=== PATIENT | male | born 1975 | race Caucasian/White ===

== ENCOUNTER 2018-11-24 12:12 | Observation (INO) | payer BC ==
[~2018-11-24 12:12] MED LIST: Lidocaine 1%/Sod Bicarbonate in NS 8.4% 1 ML Syringe IDERM PRN; Sodium Chloride 0.9% 10 ML Syringe FLUSH PRN
[2018-11-24] MEDS ORDERED: Tamsulosin 0.4 MG Cap.ER PO SCH (12:15)
[2018-11-24] MEDS ORDERED: cefOXitin 1 GM in Premix Bag 1 BAG IV SCH ×2 (12:15→15:00)
[2018-11-24] MEDS ORDERED: metroNIDAZOLE/Normal Saline 500 MG in Premix Bag 1 BAG IV SCH (12:15)
[2018-11-24] MEDS ORDERED: Bupivacaine 0.5% 30 ML SDV ONE (12:28)
[2018-11-24] MEDS ORDERED: Lidocaine 1% 6 ML ONE (12:31)
[2018-11-24] MEDS ORDERED: HYDROmorphone 0.5 MG/0.5 ML Syringe ONE (12:31)
[2018-11-24] MEDS ORDERED: Propofol 200 MG/20 ML SDV ONE ×2 (12:31→13:15)
[2018-11-24] MEDS ORDERED: Lactated Ringers 1,000 ML ONE (12:31)
[2018-11-24] MEDS ORDERED: Dexamethasone 4 MG/ML 5 ML MDV ONE (12:31)
[2018-11-24] MEDS ORDERED: Ondansetron 4 MG/2 ML SDV ONE (12:31)
[2018-11-24] MEDS ORDERED: Ketorolac 30 MG/ML SDV ONE (12:31)
[2018-11-24] MEDS ORDERED: Rocuronium 50 MG/5 ML Vial ONE (12:31)
[2018-11-24] MEDS ORDERED: Midazolam 1 MG/ML 2 ML SDV ONE (12:32)
[2018-11-24] MEDS ORDERED: fentaNYL 250 MCG/5 ML SDV ONE (12:32)
[2018-11-24] MEDS: Lactated Ringers 1,000 ML IV SCH ×2 (12:35→22:21)
--- NOTE | 2018-11-24 12:45 | PCM.PREANE ---
Preanesthetic Assessment - Anesthesia/Transfusion/Family Hx Anesthesia History: Prior Anesthesia Without Reaction Transfusion History: No Prior Transfusion(s) Intubation History: Unknown - Review of Systems General: No Symptoms, Fatigue, Malaise Pulmonary: No Symptoms (ETOH: occasionally) Cardiovascular: No Symptoms, Palpitations (many years ago) Gastrointestinal: Difficulty Swallowing Neurological: No Symptoms Other: Reports: Sinus Problem (seasonal allergies/septoplasty surgery in the past), Anxiety - Physical Assessment NPO Status Date: 11/24/18 NPO Status Time: 05:00 Vital Signs: HR: 83 BP:133/84 TEMP:98.1F RESP:16 SAT:98% Height: 1.88 m Weight: 93.44 kg ASA Class: 2E Mental Status: Alert & Oriented x3 Airway Class: Mallampati = 2 Dentition: Reports: Normal Dentition, Caries Thyro-Mental Finger Breadths: 3 Mouth Opening Finger Breadths: 3 ROM/Head Extension: Full Lungs: Clear to Auscultation, Normal Respiratory Effort Cardiovascular: Regular Rate, Regular Rhythm, No Murmurs - Lab Values: All labs reviewed and noted and within acceptable ranges to proceed with scheduled procedure. - Allergies Allergies/Adverse Reactions: Allergies Allergy/AdvReac Type Severity Reaction Status Date / Time No Known Allergies Allergy Verified 11/24/18 12:19 - Anesthesia Plan Pre-Op Medication Ordered: None - Acknowledgements Anesthesia Type Planned: General Anesthesia Pt an Appropriate Candidate for the Planned Anesthesia: Yes Alternatives and Risks of Anesthesia Discussed w Pt/Guardian: Yes Pt/Guardian Understands and Agrees with Anesthesia Plan: Yes PreAnesthesia Questionnaire - CURRENT (IN HOUSE) MEDS Current Meds: Current Medications Lactated Ringer's (Ringers, Lactated) 1,000 mls @ 125 mls/hr IV ASDIRECTED AARON Last Admin: 11/24/18 12:35 Dose: 125 mls/hr Cefoxitin Sodium 1 gm/ Premix 50 mls @ 100 mls/hr IV ONETIME AARON Metronidazole 500 mg/ Premix 100 mls @ 100 mls/hr IV ONETIME AARON Last Admin: 11/24/18 12:37 Dose: 100 mls/hr Lidocaine/Sodium Bicarbonate (Buffered Lidocaine 1% In Ns 8.4%) 0.25 ml IDERM ONETIME PRN PRN Reason: Prior to IV Start Last Admin: 11/24/18 12:35 Dose: 0.25 ml Sodium Chloride (Saline Flush) 10 ml FLUSH ASDIRECTED PRN PRN Reason: Keep Vein Open Tamsulosin HCl (Flomax) 0.4 mg PO ONETIME AARON Last Admin: 11/24/18 12:37 Dose: 0.4 mg Discontinued Medications Bupivacaine HCl (Marcaine 0.5%) Confirm Administered Dose 30 ml .ROUTE .STK-MED ONE Stop: 11/24/18 12:29 Dexamethasone (Dexamethasone) Confirm Administered Dose 20 mg .ROUTE .STK-MED ONE Stop: 11/24/18 12:32 Fentanyl (Sublimaze) Confirm Administered Dose 250 mcg .ROUTE .STK-MED ONE Stop: 11/24/18 12:33 Hydromorphone HCl (Dilaudid) Confirm Administered Dose 0.5 mg .ROUTE .STK-MED ONE Stop: 11/24/18 12:32 Lidocaine HCl (Xylocaine-Mpf 1%) Confirm Administered Dose 6 mls @ as directed .ROUTE .ST-MED ONE Stop: 11/24/18 12:32 Cefoxitin Sodium (Mefoxin In Dextrose,Iso-Osm 2 Gm/50 Ml) Confirm Administered Dose 50 mls @ as directed .ROUTE .ST-MED ONE Stop: 11/24/18 12:32 Lactated Ringer's (Ringers, Lactated) Confirm Administered Dose 1,000 mls @ as directed .ROUTE .ST-MED ONE Stop: 11/24/18 12:32 Ketorolac Tromethamine (Toradol) Confirm Administered Dose 30 mg .ROUTE .ST- MED ONE Stop: 11/24/18 12:32 Midazolam HCl (Versed 1 Mg/Ml) Confirm Administered Dose 2 mg .ROUTE .ST-MED ONE Stop: 11/24/18 12:33 Ondansetron HCl (Zofran) Confirm Administered Dose 4 mg .ROUTE .STK-MED ONE Stop: 11/24/18 12:32 Propofol (Diprivan 20 Ml) Confirm Administered Dose 200 mg .ROUTE .STK-MED ONE Stop: 11/24/18 12:32 Rocuronium [place] (Zemuron) Confirm Administered Dose 50 mg .ROUTE .STK-MED ONE Stop: 11/24/18 12:32
[2018-11-24] MEDS ORDERED: diphenhydrAMINE 50 MG/ML SDV IVPUSH PRN (13:55)
[2018-11-24] MEDS ORDERED: Ondansetron 4 MG/2 ML SDV IVPUSH PRN ×2 (13:55→14:47)
[2018-11-24] MEDS ORDERED: HYDROmorphone 0.5 MG/0.5 ML Syringe IVPUSH PRN ×2 (13:55→17:04)
--- NOTE | 2018-11-24 14:44 | PCM.OPNOTE ---
- General Post-Op/Procedure Note Date of Surgery/Procedure: 11/24/18 Operative Procedure(s): lap appy Pre Op Diagnosis: acute appendicitis Post-Op Diagnosis: Same Anesthesia Technique: MAC Primary Surgeon: Eduard Beltrán EBL in mLs: 20 Complications: None Condition: Good
[2018-11-24] MEDS ORDERED: Tamsulosin 0.4 MG Cap.ER PO ONE (14:48)
--- NOTE | 2018-11-24 14:57 | PCM.POSTAN ---
POST ANESTHESIA ASSESSMENT - MENTAL STATUS Mental Status: Alert, Oriented - VITAL SIGNS Vital Signs: Last Vital Signs 1447 143/81 82 17 93% 97.9F - RESPIRATORY Respiratory Status: Respiratory Rate WNL, Airway Patent, O2 Saturation Stable, Supplemental Oxygen - CARDIOVASCULAR CV Status: Pulse Rate WNL, Blood Pressure Stable - GASTROINTESTINAL GI Status: No Symptoms - PAIN Pain Score: 0 - POST OP HYDRATION Hydration Status: Adequate & Stable
[2018-11-24] MEDS ORDERED: Lactated Ringers 1,000 ML IV SCH (15:00)
[2018-11-24] MEDS: fentaNYL 100 MCG/2 ML SDV IVPUSH PRN ×2 (15:01→15:21)
--- NOTE | 2018-11-24 15:17 | PCM48HPAN ---
Post Anesthesia Note - EVALUATION WITHIN 48HRS OF ANESTHETIC Vital Signs in Normal Range: Yes Patient Participated in Evaluation: Yes Respiratory Function Stable: Yes Airway Patent: Yes Cardiovascular Function Stable: Yes Hydration Status Stable: Yes Pain Control Satisfactory: Yes Nausea and Vomiting Control Satisfactory: Yes Mental Status Recovered: Yes Vital Signs: Last Vital Signs Temp 36.6 C 11/24/18 14:47 Pulse 83 11/24/18 12:25 Resp 12 11/24/18 15:15 BP 119/74 11/24/18 15:15 Pulse Ox 96 11/24/18 15:15
[2018-11-24] MEDS ORDERED: Meperidine 50 MG/ML Vial IVPUSH ONE (17:17)
[2018-11-24] MEDS: Acetaminophen/HYDROcodone 325-5 MG Tab PO PRN (20:58)
[2018-11-24] MEDS: cefOXitin 1 GM in Premix Bag 1 BAG IV SCH (20:58)
[2018-11-25] MEDS: cefOXitin 1 GM in Premix Bag 1 BAG IV SCH (04:18)
[2018-11-25] MEDS: Acetaminophen/HYDROcodone 325-5 MG Tab PO PRN ×2 (04:19→09:02)
[2018-11-25] MEDS: Lactated Ringers 1,000 ML IV SCH (06:14)
--- NOTE | 2018-11-25 07:52 | OR ---
DATE OF OPERATION: 11/24/2018 SURGEON: Eduard Beltrán MD PREOPERATIVE DIAGNOSIS: Acute appendicitis. POSTOPERATIVE DIAGNOSIS: Acute appendicitis. OPERATION PERFORMED: Laparoscopic appendectomy done under general anesthetic. There was 20 mL of blood loss and findings were acutely inflamed. Tip of the appendix in the retrocecal position. ANESTHESIA: Done under general anesthetic. DESCRIPTION OF PROCEDURE: The patient taken to the operating room, placed in a supine position, connected to monitoring equipment, given a general anesthetic, and intubated. Antibiotics and SCDs were given, and the abdomen was then clipped and prepped with chlorhexidine, alcohol prepped and draped off in a sterile fashion. An incision was made just below the umbilicus and carried down by sharp dissection to the fascia. This was incised, tented up, abdominal cavity entered. Uzma trocar placed and secured with stay sutures. 30 degree 5 mm camera was then inserted. Abdominal cavity scan showing appendix in the retrocecal position. He was placed in reverse Trendelenburg with leftward tilt and a 5 mm trocar placed in right upper quadrant and 1 in right lower quadrant. At the base of the cecum, a window was made in the mesoappendix. An Ethicon Endo-ligator placed in the appendix, from its attachment to the cecum. The appendix was then tented up and slowly dissected out. The mesoappendix was secured with hemoclips and another application of Endo-ligator until the cecum. Tail of the tip of the appendix was reached and this was dissected away from the surrounding inflammatory tissue and released and put in an endobag and brought out of the abdominal cavity. Camera was reinserted. The area was irrigated. Excellent hemostasis noted and checked and time was spent watching for any accumulation, none was noted. The subhepatic space and subdiaphragmatic space on the right were then irrigated free of any clots or debris. This completed the intraabdominal portion. The stump was quite secure and it was checked on leaving. Pneumoperitoneum was removed. The ports were removed and the fascia closed with 0 Vicryl suture and skin closed with subdermal 4-0 Dexon suture in a running fashion and the subumbilical incision and the port incisions were closed with interrupted subdermal 4-0 Dexon suture. Steri-Strips and sterile dressing placed, and each port was anesthetized with Marcaine. The patient with small dressing. The patient tolerated the procedure and sent to recovery room in a stable condition. Specimen sent to pathology in a labeled container. ESTIMATED BLOOD LOSS: MMODAL /[id number]
--- NOTE | 2018-11-25 09:00 | PCM.SURGPN ---
- General Info Date of Service: 11/25/18 - Patient Data Vitals - Most Recent: Last Vital Signs Temp 98.8 F 11/25/18 04:25 Pulse 87 11/25/18 04:25 Resp 16 11/25/18 04:25 BP 115/65 11/25/18 04:25 Pulse Ox 93 L 11/25/18 04:25 Weight - Most Recent: 95.527 kg I&O - Last 24 Hours: Intake & Output 11/24/18 11/25/18 11/25/18 23:59 07:59 15:59 Intake Total 320 1925 Output Total 500 Balance 320 1425 Lab Results Last 24 Hrs: Laboratory Results - last 24 hr 11/25/18 11/25/18 Range/Units 04:40 04:40 WBC 13.17 H (4.23-9.07) K/mm3 RBC 4.51 L (4.63-6.08) M/mm3 Hgb 13.0 L (13.7-17.5) gm/dl Hct 38.9 L (40.1-51.0) % MCV 86.3 (79.0-92.2) fl MCH 28.8 (25.7-32.2) pg MCHC 33.4 (32.2-35.5) g/dl RDW Std Deviation 39.7 (35.1-43.9) fL Plt Count 241 (163-337) K/mm3 MPV 8.8 L (9.4-12.3) fl Neut % (Auto) 80.2 H (34.0-67.9) % Lymph % (Auto) 10.3 L (21.8-53.1) % [place] % (Auto) 9.2 (5.3-12.2) % Eos % (Auto) 0 L (0.8-7.0) Baso % (Auto) 0.1 (0.1-1.2) % Neut # (Auto) 10.58 H (1.78-5.38) K/mm3 Lymph # (Auto) 1.35 (1.32-3.57) K/mm3 [place] # (Auto) 1.21 H (0.30-0.82) K/mm3 Eos # (Auto) 0.00 L (0.04-0.54) K/mm3 Baso # (Auto) 0.01 (0.01-0.08) K/mm3 Sodium 139 (136-145) mEq/L Potassium 3.8 (3.5-5.1) mEq/L Chloride 106 (98-107) mEq/L Carbon Dioxide 28 (21-32) mEq/L Anion Gap 8.8 (5-15) BUN 11 (7-18) mg/dL Creatinine 1.2 (0.7-1.3) mg/dL Est Cr Clr Drug Dosing 92.28 mL/min Estimated GFR (MDRD) > 60 (>60) mL/min BUN/Creatinine Ratio 9.2 L (14-18) Glucose 124 H (74-106) mg/dL Calcium 8.7 (8.5-10.1) mg/dL Total Bilirubin 0.8 (0.2-1.0) mg/dL AST 12 L (15-37) U/L ALT 16 (16-63) U/L Alkaline Phosphatase 56 (46-116) U/L Total Protein 6.2 L (6.4-8.2) g/dl Albumin 3.3 L (3.4-5.0) g/dl Globulin 2.9 gm/dL Albumin/Globulin Ratio 1.1 (1-2) Med Orders - Current: Current Medications Hydrocodone Bitart/Acetaminophen (Glidden 325-5 Mg) 1 tab PO Q4H PRN PRN Reason: Pain Last Admin: 11/25/18 04:19 Dose: 1 tab Hydromorphone HCl (Dilaudid) 0.5 mg IVPUSH Q6H PRN PRN Reason: Pain Last Admin: 11/24/18 17:29 Dose: 0.5 mg Lactated Ringer's (Ringers, Lactated) 1,000 mls @ 125 mls/hr IV ASDIRECTED AARON Last Admin: 11/25/18 06:14 Dose: 125 mls/hr Cefoxitin Sodium 1 gm/ Premix 50 mls @ 100 mls/hr IV ONETIME AARON Metronidazole 500 mg/ Premix 100 mls @ 100 mls/hr IV ONETIME AARON Last Admin: 11/24/18 12:37 Dose: 100 mls/hr Lactated Ringer's (Ringers, Lactated) 1,000 mls @ 125 mls/hr IV ASDIRECTED AARON Cefoxitin Sodium 1 gm/ Premix 50 mls @ 100 mls/hr IV Q8H AARON Last Admin: 11/25/18 04:18 Dose: 100 mls/hr Lidocaine/Sodium Bicarbonate (Buffered Lidocaine 1% In Ns 8.4%) 0.25 ml IDERM ONETIME PRN PRN Reason: Prior to IV Start Last Admin: 11/24/18 12:35 Dose: 0.25 ml Ondansetron HCl (Zofran) 4 mg IVPUSH Q8H PRN PRN Reason: Nausea Sodium Chloride (Saline Flush) 10 ml FLUSH ASDIRECTED PRN PRN Reason: Keep Vein Open Tamsulosin HCl (Flomax) 0.4 mg PO ONETIME AARON Last Admin: 11/24/18 12:37 Dose: 0.4 mg Discontinued Medications Bupivacaine HCl (Marcaine 0.5%) Confirm Administered Dose 30 ml .ROUTE .STK-MED ONE Stop: 11/24/18 12:29 Last Admin: 11/24/18 13:33 Dose: 15 ml Dexamethasone (Dexamethasone) Confirm Administered Dose 20 mg .ROUTE .STK-MED ONE Stop: 11/24/18 12:32 Diphenhydramine HCl (Benadryl) 25 mg IVPUSH Q6H PRN PRN Reason: Pruritis Stop: 11/24/18 18:00 Fentanyl (Sublimaze) Confirm Administered Dose 250 mcg .ROUTE .STK-MED ONE Stop: 11/24/18 12:33 Fentanyl (Sublimaze) 50 mcg IVPUSH Q5M PRN PRN Reason: Pain Stop: 11/24/18 18:00 Last Admin: 11/24/18 15:21 Dose: 50 mcg Hydromorphone HCl (Dilaudid) Confirm Administered Dose 0.5 mg .ROUTE .STK-MED ONE Stop: 11/24/18 12:32 Hydromorphone HCl (Dilaudid) 0.5 mg IVPUSH Q15M PRN PRN Reason: severe pain Stop: 11/24/18 18:00 Lidocaine HCl (Xylocaine-Mpf 1%) Confirm Administered Dose 6 mls @ as directed .ROUTE .STK-MED ONE Stop: 11/24/18 12:32 Cefoxitin Sodium (Mefoxin In Dextrose,Iso-Osm 2 Gm/50 Ml) Confirm Administered Dose 50 mls @ as directed .ROUTE .STK-MED ONE Stop: 11/24/18 12:32 Lactated Ringer's (Ringers, Lactated) Confirm Administered Dose 1,000 mls @ as directed .ROUTE .STK-MED ONE Stop: 11/24/18 12:32 Cefoxitin Sodium 1 gm/ Premix 50 mls @ 100 mls/hr IV Q8H AARON Last Admin: 11/24/18 19:47 Dose: Not Given Ketorolac Tromethamine (Toradol) Confirm Administered Dose 30 mg .ROUTE .STK- MED ONE Stop: 11/24/18 12:32 Meperidine HCl (Meperidine) 25 mg IVPUSH ONETIME ONE Stop: 11/24/18 17:18 Last Admin: 11/24/18 19:47 Dose: Not Given Midazolam HCl (Versed 1 Mg/Ml) Confirm Administered Dose 2 mg .ROUTE .STK-MED ONE Stop: 11/24/18 12:33 Ondansetron HCl (Zofran) Confirm Administered Dose 4 mg .ROUTE .STK-MED ONE Stop: 11/24/18 12:32 Ondansetron HCl (Zofran) 4 mg IVPUSH ONETIME PRN PRN Reason: Nausea/Vomiting Stop: 11/24/18 18:00 Propofol (Diprivan 20 Ml) Confirm Administered Dose 200 mg .ROUTE .STK-MED ONE Stop: 11/24/18 12:32 Propofol (Diprivan 20 Ml) Confirm Administered Dose 200 mg .ROUTE .STK-MED ONE Stop: 11/24/18 13:16 Rocuronium [place] (Zemuron) Confirm Administered Dose 50 mg .ROUTE .STK-MED ONE Stop: 11/24/18 12:32 Tamsulosin HCl (Flomax) 0.4 mg PO ONETIME ONE Stop: 11/24/18 14:49 Last Admin: 11/24/18 19:51 Dose: Not Given - Problem List Review Problem List Initiated/Reviewed/Updated: Yes - My Orders Last 24 Hours: Active Orders 24 hr Category Date Time Status Patient Status [ADT] Urgent ADT 11/24/18 14:44 Active Antiembolic Devices [RC] BID Care 11/24/18 14:49 Active Clear Liquid Diet [DIET] Diet 11/24/18 Dinner Active Acetaminophen/HYDROcodone [Glidden 325-5 MG] Med 11/24/18 17:03 Active 1 tab PO Q4H PRN HYDROmorphone [Dilaudid] Med 11/24/18 17:04 Active 0.5 mg IVPUSH Q6H PRN Lactated Ringers [Ringers, Lactated] 1,000 ml Med 11/24/18 12:15 Active IV ASDIRECTED Lactated Ringers [Ringers, Lactated] 1,000 ml Med 11/24/18 15:00 Active IV ASDIRECTED Lidocaine 1%/Sod Bicarbonate [Buffered Lidocaine 1% in Med 11/24/18 12:02 Active NS 8.4%] 0.25 ml IDERM ONETIME PRN Ondansetron [Zofran] Med 11/24/18 14:47 Active 4 mg IVPUSH Q8H PRN Sodium Chloride 0.9% [Saline Flush] Med 11/24/18 12:02 Active 10 ml FLUSH ASDIRECTED PRN Tamsulosin [Flomax] Med 11/24/18 12:15 Active 0.4 mg PO ONETIME cefOXitin [Mefoxin in Dextrose,Iso-Osm 1 GM/50 ML] 1 gm Med 11/24/18 12:15 Active Premix Bag 1 bag IV ONETIME cefOXitin [Mefoxin in Dextrose,Iso-Osm 1 GM/50 ML] 1 gm Med 11/24/18 21:00 Active Premix Bag 1 bag IV Q8H metroNIDAZOLE/Normal Saline [Flagyl 500 MG in NS 100 ML Med 11/24/18 12:15 Active ] 500 mg Premix Bag 1 bag IV ONETIME Medication Administration Instruction [OM.PC] Routine Oth 11/24/18 12:02 Ordered Peripheral IV Insertion Adult [OM.PC] Routine Oth 11/24/18 12:02 Ordered SCD [Sequential Compression Device] [OM.PC] Routine Oth 11/24/18 14:49 Ordered Resuscitation Status Routine Resus Stat 11/24/18 16:55 Ordered Medication Orders Hydrocodone Bitart/Acetaminophen ([place] 325-5 Mg) 1 tab PO Q4H PRN PRN Reason: Pain Last Admin: 11/25/18 04:19 Dose: 1 tab Admin: 11/24/18 20:58 Dose: 1 tab Hydromorphone HCl (Dilaudid) 0.5 mg IVPUSH Q6H PRN PRN Reason: Pain Last Admin: 11/24/18 17:29 Dose: 0.5 mg Lactated Ringer's (Ringers, Lactated) 1,000 mls @ 125 mls/hr IV ASDIRECTED AARON Last Admin: 11/25/18 06:14 Dose: 125 mls/hr Infusion: 11/25/18 06:14 Dose: 125 mls/hr Admin: 11/24/18 22:21 Dose: 125 mls/hr Infusion: 11/24/18 20:35 Dose: 125 mls/hr Admin: 11/24/18 12:35 Dose: 125 mls/hr Cefoxitin Sodium 1 gm/ Premix 50 mls @ 100 mls/hr IV ONETIME AARON Metronidazole 500 mg/ Premix 100 mls @ 100 mls/hr IV ONETIME AARON Last Admin: 11/24/18 12:37 Dose: 100 mls/hr Lactated Ringer's (Ringers, Lactated) 1,000 mls @ 125 mls/hr IV ASD[facility]RECTED [facility] Cefoxitin Sodium 1 gm/ Premix 50 mls @ 100 mls/hr IV Q8H [facility] Last Admin: 11/25/18 04:18 Dose: 100 mls/hr Infusion: 11/24/18 21:28 Dose: 100 mls/hr Admin: 11/24/18 20:58 Dose: 100 mls/hr Lidocaine/Sodium Bicarbonate (Buffered Lidocaine 1% In Ns 8.4%) 0.25 ml IDERM ONETIME PRN PRN Reason: Prior to IV Start Last Admin: 11/24/18 12:35 Dose: 0.25 ml Ondansetron HCl (Zofran) 4 mg IVPUSH Q8H PRN PRN Reason: Nausea Sodium Chloride (Saline Flush) 10 ml FLUSH ASDIRECTED PRN PRN Reason: Keep Vein Open Tamsulosin HCl (Flomax) 0.4 mg PO ONETIME AARON Last Admin: 11/24/18 12:37 Dose: 0.4 mg - Plan Plan (Free Text/Narrative):: discharge dictated MAUDE
--- NOTE | 2018-11-25 16:38 | DISCH ---
ADMISSION DATE: 11/24/2018 DISCHARGE DATE: 11/25/2018 This is a 43-year-old male who presented in an unusual way with acute appendicitis. He was having on and off pain in the left flank, which was consistent with a kidney stone. He eventually came in on Thursday because the pain was severe. Urinalysis was done showing red cells and a CT scan was done showing hydronephrosis of the left kidney with a ureteric stone. However, appendix was noted to be inflamed, and a CT scan done for kidney stone was consistent with acute appendicitis. PAST MEDICAL HISTORY: Good health. PHYSICAL EXAMINATION: GENERAL: Examination demonstrated alert and cooperative male. EYES, EARS, NOSE, AND THROAT: Unremarkable. NECK: Supple. LUNGS: Clear. HEART: Heart tones regular rate. ABDOMEN: Soft, except for the right lower quadrant showed guarding and tenderness. He had left flank tenderness on percussion. HOSPITAL COURSE: The patient was brought as an emergency procedure, and laparoscopic appendectomy was performed. He was noted to have a retrocecal appendix with an inflamed tip. The patient was felt the need to have observation and IV fluids to help with the passage of his stone. He was given Flomax. He was concerned about not sending him home because of the nausea that can accompany these things and the inability to eat or take fluids. Thus, he was admitted to observational status. IV fluids were given. Flomax was given. Given pain medication. The patient this morning early noted severe pain in the left flank that resolved completely and he no longer has flank pain. He has mild tenderness due to incisional tenderness on examination of abdomen. No flank tenderness. LABORATORY DATA: Demonstrated white count of 13,000, hemoglobin of 13, and platelet count was normal. Chemistries showed BUN of 11 and creatinine 1.2. The patient was noted to be tolerating a diet and ambulating, and his pain was controlled with oral pain medication. He was felt to reach maximal hospital benefit and was discharged on a regular diet. No work. Follow up and see me in a week. His parents are here and will take him to [place] for convalescence. MEDICATIONS: Consist of: 1. Flomax for a week. 2. Amoxicillin 500 mg 4 times a day for 4 days. 3. Vicodin 5/325 one p.o. q.i.d. p.r.n. pain. CONDITION ON DISCHARGE: Improved. He will be on a regular diet. No work. FOLLOW-UP: See me in the clinic. DISCHARGE DIAGNOSIS: Ureteric stone, left side, and concomitant with acute appendicitis, status post laparoscopic appendectomy. FINAL DIAGNOSIS: DISCHARGE MEDICATIONS: DIET: ACTIVITY: MMODAL /[id number]
== END 2018-11-25 09:40 | disposition home or self-care (01) ==
LOC: JD.SDS 12:12 → JD.MS 15:06
PROVIDERS: ADMIT Surgery; ATTEND Surgery
DX: K35.80 Unspecified acute appendicitis (principal); N13.2 Hydronephrosis with renal and ureteral calculous obstruction; Z79.1 Long term (current) use of non-steroidal anti-inflammatories (NSAID); Z79.899 Other long term (current) drug therapy
CPT/HCPCS: 36415; 44970; 80053; 85025; A9270; G0378; J0694; J1100; J1170; J1885; J2001; J2250; J2405; J2704; J3010; J3490; J7120; 00840